=== PATIENT | male | born 1955 | race Caucasian/White ===

== ENCOUNTER 2016-12-04 06:44 | Day surgery (SDC) | payer OTHER ==
[~2016-12-04] VITALS: Ht 167.6 cm; Wt 66.9 kg
[~2016-12-04 06:44] MED LIST: AMLO2.5T78
[2016-12-04 07:32] VITALS: Ht 167.6 cm; Wt 66.9 kg
[2016-12-04 07:50] VITALS: BP 172/102; PULSE 60; RESP 14
[2016-12-04] MEDS ORDERED: ASPI81TA3 PO (07:52)
[2016-12-04] MEDS ORDERED: AMLO-147 PO (07:52)
[2016-12-04] MEDS ORDERED: LIDOCAINE 2% (SDV) 5 ML INJ ONE (07:54)
[2016-12-04] MEDS ORDERED: MIDAZOLAM 1 MG/ML 2 ML INJ ONE (07:54)
[2016-12-04] MEDS ORDERED: FENTAnyl 50 MCG/ML VIAL ONE (07:55)
[2016-12-04 08:35] VITALS: BP 136/84; PULSE 52; RESP 18
--- NOTE | 2016-12-04 08:59 | GILP ---
DATE OF PROCEDURE: INDICATION: A 61-year-old male undergoing this procedure for colon cancer screening. The risks of the procedure, related and unrelated complications, anesthetic risks and alternatives were discussed and informed consent was obtained. DESCRIPTION OF PROCEDURE: The patient was brought to the GI lab, sedated by the anesthesiologist. After optimal sedation, the scope was passed with much ease into the rectum. He had external hemorr hoid. The scope was advanced through the sigmoid, descending, transverse colon, all the way into th e cecum. The cecum was filled with solid stool. Visibility was only 50%. The rest of the colon ap peared normal, but the preparation was somewhat poor. Scattered solid stool was seen throughout the colon. A few diverticula were seen on the left side of the colon. Retroversion was done. Again, hemorrhoids were conformed. IMPRESSION: 1. Hemorrhoids. 2. Poor prep. 3. Diverticulosis. PLAN: The patient needs to stay on a high fiber diet. Sitz baths. Colonoscopy needs to be repeated in 2-3 years. Dictated By: RENY SHETH/DIEGO Conf#: [id number] DID#: [id number]
== END 2016-12-04 12:00 | disposition home or self-care (01) ==
LOC: GIL 06:44 → MERGE 06:44 → GIL 06:48
PROVIDERS: ATTEND Internal Medicine Gastroenterology
DX: Z12.11 Encounter for screening for malignant neoplasm of colon (principal); K64.9 Unspecified hemorrhoids; I10 Essential (primary) hypertension
CPT/HCPCS: 45378; J2250; J3010; Z7610